=== PATIENT | female | born 1995 | race Caucasian/White ===

== ENCOUNTER → 2021-10-02 | Outpatient (CLI) | payer OTHER ==
--- NOTE | 2021-10-02 09:25 | REP ---
INDICATION: ANATOMY. COMPARISON: None. TECHNIQUE: Transabdominal scanning FINDINGS: Multiple ultrasonographic images of the gravid uterus shows a single living intrauterine gestation in the breech presentation. The placenta is anterior and not low-lying. The cervix measures 3.1 cm in length and is closed. Doppler interrogation of the heart shows a heart rate of 140 beats per minute. The subjective amniotic fluid volume is within normal limits. BPD: 4.7 cm 20 weeks 2 days HC: 18.6 cm 20 weeks 6 days AC: 15.9 cm 21 weeks 0 days FL: 3.6 cm 21 weeks 2 days The estimated weight is 399 g which is less than the 3rd percentile. anatomical structures seen to be unremarkable are as follows: Thalami, cavum septum pellucidum, cerebellum, cisterna magna, cerebral ventricles, kidneys, urinary bladder, cord insertion, three-vessel umbilical cord, upper lip, stomach, ventricular outflow tracts, and extremities The anatomical structures seen suboptimally are as follows: Four-chamber heart and spine IMPRESSION: Single living intrauterine gestation as described above with an estimated gestational age of 20 weeks 6 days via composite criteria and an estimated date of delivery of 02/13/2022 by today's exam. No anomalies were detected, however, recommend a follow-up examination to optimally visualize those structures not well seen today as described above. <Electronically signed by Robb Rice > 10/02/21 [id number]
== END ==
LOC: M RAD 06:57
PROVIDERS: ATTEND Midwife
DX: Z34.00 Encounter for supervision of normal first pregnancy, unspecified trimester (principal); Z3A.20 20 weeks gestation of pregnancy